=== PATIENT | male | born 1955 | race Caucasian/White ===

== ENCOUNTER 2017-07-15 00:15 | Emergency (ER) | payer BC, OTHER ==
[~2017-07-15 00:15] MED LIST: DIVA250T3 PO; DIVA500T3 PO; GLIM2TAB PO; HYDR-3801 PO; LANTUS2P SQ; LEVO.05 PO; LISI40TA PO; LITH300T PO; METF1000 PO; METF500T PO; NITR1SUB3 SL; PARO20TA3 PO; POTA-163 PO; QUET5TAB PO; VENTAER INH
[2017-07-15] MEDS ORDERED: EPINEPHrine HCL (1:10,000) 1 MG/10 ML SYRINGE IV ONE (00:16)
[2017-07-15] MEDS ORDERED: CALCIUM CHLORIDE 10% SOLN 1 GRAM/10 ML SYR IV ONE (00:16)
[2017-07-15] MEDS ORDERED: SODIUM BICARBONATE 8.4% INJ 50 MEQ/50 ML SYR IV ONE (00:16)
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
== END 2017-07-15 04:19 | disposition expired ==
LOC: NEPC 00:15 → NEPI 04:19
DX: I46.9 Cardiac arrest, cause unspecified (principal); E11.9 Type 2 diabetes mellitus without complications; E66.9 Obesity, unspecified; I25.10 Atherosclerotic heart disease of native coronary artery without angina pectoris; E78.00 Pure hypercholesterolemia, unspecified; I10 Essential (primary) hypertension; J44.9 Chronic obstructive pulmonary disease, unspecified; F17.200 Nicotine dependence, unspecified, uncomplicated; Z79.4 Long term (current) use of insulin; Z87.39 Personal history of other diseases of the musculoskeletal system and connective tissue; Z86.69 Personal history of other diseases of the nervous system and sense organs
CPT/HCPCS: 36556; 92950; 99291; J0171